=== PATIENT | female | born 1970 | race American Indian/Alaskan Native ===

== ENCOUNTER 2016-11-11 12:11 | Inpatient (IN) | payer OTHER ==
[2016-11-11 12:12] VITALS: BMI 42.8
[2016-11-11] MEDS ORDERED: Albuterol-Ipratrop 3 mg / 0.5 (3 ml) UD ONE (13:34)
[2016-11-11] MEDS: Albuterol-Ipratrop 3 mg / 0.5 (3 ml) UD IH SCH ×2 (13:39→13:40)
--- NOTE | 2016-11-11 13:43 | C.PDOC ---
History Of Present Illness 46 y/o female pmhx asthma, fibroids, ovarian cysts presents to the ED with asthma exacerbation with cough and fever the past 3 days. Pt has not taken any medications. Pt denies fever, chest pain, vomiting, dizziness or any other complaints. Time Seen by Provider: 11/11/16 12:42 Chief Complaint (Nursing): Shortness Of Breath History Per: Patient History/Exam Limitations: no limitations Onset/Duration Of Symptoms: Days Current Symptoms Are (Timing): Still Present Current Respiratory Medications: None Associated Symptoms: denies: Fever, Chest Pain, Dizziness Recent travel outside of the [place]: No Past Medical History Reviewed: Historical Data, Nursing Documentation, Vital Signs Vital Signs: Last Vital Signs Temp 99.5 F 11/11/16 16:04 Pulse 101 H 11/11/16 16:04 Resp 20 11/11/16 16:04 BP 93/64 L 11/11/16 16:04 Pulse Ox 100 11/11/16 16:39 - Medical History PMH: Asthma - [facility] Procedures CLOSED ENDOSCOPIC BIOPSY OF LARGE INTESTINE (02/07/14) ESOPHAGOGASTRODUODENOSCOPY [EGD] W/CLOSED BIOPSY (02/07/14) Family History: States: Unknown Family Hx - Social History Hx Tobacco Use: No Hx Alcohol Use: Yes Hx Substance Use: No - Immunization History Hx Tetanus Toxoid Vaccination: No Hx Influenza Vaccination: No Hx Pneumococcal Vaccination: No Review Of Systems Except As Marked, All Systems Reviewed And Found Negative. Constitutional: Positive for: Fever Cardiovascular: Negative for: Chest Pain Respiratory: Positive for: Cough Gastrointestinal: Negative for: Vomiting Neurological: Negative for: Dizziness Physical Exam - Physical Exam Appears: Non-toxic, No Acute Distress Skin: Warm, Dry, No Rash Head: Atraumatic, Normacephalic Neck: Normal ROM, Supple Chest: Symmetrical Cardiovascular: Rhythm Regular, No Murmur Respiratory: No Rales, Rhonchi (both lung correa), Wheezing (both lung correa) Gastrointestinal/Abdominal: Soft ED Course And Treatment - Laboratory Results Result Diagrams: 11/11/16 15:35 11/11/16 15:35 Lab Interpretation: Abnormal O2 Sat by Pulse Oximetry: 100 (on room air) Pulse Ox Interpretation: Normal - Radiology CXR Interpretation: Yes: Infiltrates Progress Note: Plan: CXR, nebulizer treatments. Treated with zithromax, prednisone and IVF NSS. Treated with avelox 400 mg IV Reassessment Condition: Improved - Physician Consult Information Physician Contacted: Angie Hayward Outcome Of Conversation: admit Disposition Discussed With : Angie Hayward Doctor Will See Patient In The: Hospital - Disposition Disposition: HOSPITALIZED Disposition Time: 16:45 Condition: STABLE - POA Present On Arrival: None - Clinical Impression Clinical Impression: Dyspnea, Leukocytosis, Pneumonia - PA / INJECTION MOLDING MACHINE TENDER / Resident Statement MD/DO has reviewed & agrees with the documentation as recorded. - Scribe Statement The provider has reviewed the documentation as recorded by the Scribe Wiliam Monroy All medical record entries made by the Scribe were at my direction and personally dictated by me. I have reviewed the chart and agree that the record accurately reflects my personal performance of the history, physical exam, medical decision making, and the department course for this patient. I have also personally directed, reviewed, and agree with the discharge instructions and disposition. Decision To Admit - Pt Status Changed To: Hospital Disposition Of: Inpatient - Admit Certification Admit to Inpatient:: After my assessment, the patient will require hospitalization for at least two midnights. This is because of the severity of symptoms shown, intensity of services needed, and/or the medical risk in this patient being treated as an outpatient. - InPatient: Physician Admission Certification: I certify that this patient requires 2 or more midnights of care for the following reason:: Pneumonia - . Bed Request Type: Regular Admitting Physician: Angie Hayward Patient Diagnosis: Dyspnea, Leukocytosis, Pneumonia
--- NOTE | 2016-11-11 13:47 | RAD ---
HISTORY: SOB COMPARISON: Chest x-ray performed 02/08/14 TECHNIQUE: Chest PA and lateral FINDINGS: Examination limited by habitus. LUNGS: Retrocardiac atelectasis or pneumonia. Please note that chest x-ray has limited sensitivity for the detection of pulmonary masses. PLEURA: No significant pleural effusion identified. No definite pneumothorax . CARDIOVASCULAR: The cardiomediastinal silhouette appears within normal limits of size. OSSEOUS STRUCTURES: No acute osseous abnormality identified. VISUALIZED UPPER ABDOMEN: Unremarkable. OTHER FINDINGS: None. IMPRESSION: Retrocardiac atelectasis or pneumonia.
[2016-11-11] MEDS ORDERED: Sodium Chloride 0.9% 1,000 ML IV ONE (14:46)
[2016-11-11] MEDS ORDERED: Sodium Chloride 0.9% 1,000 ML ONE (15:15)
[2016-11-11 15:45] LABS: BASO % 0.2 % (0.0-2.0); EOS % 0.1 % (0.0-4.0); HEMATOCRIT 35.6 % (34.0-47.0); LYMPH # 1.9 K/uL (1.0-4.3); LYMPH % 7.2 % (20.0-40.0); MEAN CELL VOLUME 81.9 fL (81.0-99.0); MEAN CORPUSCULAR HEMOGLOBIN 25.6 pg (27.0-31.0); MEAN CORPUSCULAR HGB CONC 31.3 g/dL (33.0-37.0); MONO # 1.9 K/uL (0.0-0.8); MONO % 7.4 % (0.0-10.0); PLATELET COUNT 310 K/uL (130-400); RED CELL DISTRIBUTION WIDTH 15.8 % (11.5-14.5); WHITE BLOOD COUNT 26.3 K/uL (4.8-10.8)
[2016-11-11 15:48] LABS: CHLORIDE 96 mmol/L (98-107); SODIUM 135 mmol/L (132-148)
[2016-11-11 15:49] LABS: POTASSIUM 3.9 mmol/L (3.6-5.2)
[2016-11-11 15:51] LABS: AST/SGOT 14 U/L (14-36); BILIRUBIN,TOTAL 0.6 mg/dL (0.2-1.3); CARBON DIOXIDE 26 mmol/L (22-30); GFR AFRICAN-AMERICAN > 60; TOTAL PROTEIN 7.6 g/dL (6.3-8.3)
[2016-11-11 15:52] LABS: ALKALINE PHOSPHATASE 64 U/L (38-126); ALT/SGPT 15 U/L (9-52); BLOOD UREA NITROGEN 7 mg/dL (7-17); CALCIUM 8.1 mg/dl (8.6-10.4); GLUCOSE,RANDOM 149 mg/dL (65-105)
[2016-11-11] MEDS ORDERED: Moxifloxacin IV 400mg/250ml NS 250 ML IV ONE (16:29)
[2016-11-11] MEDS ORDERED: Moxifloxacin IV 400mg/250ml NS 250 ML IVPB ONE (16:38)
[2016-11-11 17:28] LABS: NEUTROPHIL 78 % (50-75); TOTAL CELLS COUNTED 100
[2016-11-11 17:30] LABS: PLATELET CLUMPS PRESENT
[2016-11-11] MEDS ORDERED: Albuterol HFA 90 mcg/actuation (8 g) INH PRN (17:58)
[2016-11-11 18:56] VITALS: RESP 20
[2016-11-11] MEDS: Fluticasone-Salmeterol 250-50mcg Diskus INH SCH (20:04)
--- NOTE | 2016-11-11 20:15 | CP.PCM.HP ---
<Esperanza Randall - Last Filed: 11/11/16 20:09> History of Present Illness - History of Present Illness History of Present Illness: Internal medicine H & P for Hospitalist service- Esperanzamaria elena Randall, PGY-1 Pt S & E at bedside. 46F w/PMH sig for Asthma (currently uncontrolled), PUD admitted for viral syndrome x 4 days. Pt reports for past month she hasn't felt well, has tried to use a friend's antibiotic (can't remember which one), without relief. Pt reports symptoms of cough - productive- yellow sputum, myaglias, fatigue, weakness, fevers, chills, anorexia x 3 days, diarrhea x 2 days, B/L LE soresness , shaking, congestion, headache, insomnia, sick contacts (son, granddaughter. Pt tried OTC medications, including NyQuil, Shayy seltzer w/o relief of symptoms in addition to the antibiotic she can't remember. Pt reports that she presented to hospital due to the lack of resolution of symptoms. Denies N/V, SOB, abdominal pain, chest pain, constipation, hemoptysis, hematuria, hematochezia, sore throat, rhinorrhea, changes in urination. PMH: PUD, Asthma- currently using albuterol 2-3 x Q3Hs PSH: Myomectomy, Right ovarian cystectomy All: PCN SH; ETOH use on weekens #2 drinks/weekend, denies tobacco or illicit drug use PMD: "[place] something on [facility]" Home meds: Albuterol Present on Admission - Present on Admission Any Indicators Present on Admission: No History of DVT/PE: No History of Uncontrolled Diabetes: No Urinary Catheter: No Decubitus Ulcer Present: No Review of Systems - Review of Systems All systems: reviewed and no additional remarkable complaints except - Constitutional Constitutional: Chills, Fever, Lethargy, Malaise, Weakness. absent: Headache - EENT Eyes: absent: Blurred Vision, Change in Vision, Diplopia Ears: absent: Dizziness Nose/Mouth/Throat: absent: Sore Throat - Cardiovascular Cardiovascular: Diaphoresis. absent: Chest Pain, Leg Edema, Palpitations - Respiratory Respiratory: Cough. absent: Hemoptysis - Gastrointestinal Gastrointestinal: Diarrhea. absent: Abdominal Pain, Constipation, Hematemesis, Hematochezia, Nausea, Vomiting - Genitourinary Genitourinary: absent: Change in Urinary Stream, Dysuria, Hematuria - Musculoskeletal Musculoskeletal: Myalgias. absent: Numbness, Tingling - Integumentary Integumentary: absent: Rash - Neurological Neurological: absent: Dizziness, Headaches, Tingling, Weakness - Psychiatric Psychiatric: Change in Appetite Past Patient History - Past Medical History & Family History Past Medical History?: Yes - Past Social History Smoking Status: Never Smoked - CARDIAC Hx Cardiac Disorders: No - PULMONARY Hx Asthma: Yes - NEUROLOGICAL Hx Neurological Disorder: No - HEENT Hx HEENT Problems: No - RENAL Hx Chronic Kidney Disease: No - HEMATOLOGICAL/ONCOLOGICAL Hx Blood Disorders: No - INTEGUMENTARY Hx Dermatological Problems: No - MUSCULOSKELETAL/RHEUMATOLOGICAL Hx Musculoskeletal Disorders: No Hx Falls: No - GASTROINTESTINAL Hx Gastrointestinal Disorders: No - GENITOURINARY/GYNECOLOGICAL Hx Genitourinary Disorders: No - PSYCHIATRIC Hx Substance Use: No - SURGICAL HISTORY Hx Tubal Ligation: Yes Other/Comment: Removal of cyst in ovary, fibroids - ANESTHESIA Hx Anesthesia: Yes Hx Anesthesia Reactions: No Hx Malignant Hyperthermia: No Meds Allergies/Adverse Reactions: Allergies Allergy/AdvReac Type Severity Reaction Status Date / Time Penicillins Allergy Verified 11/11/16 12:33 Physical Exam - Constitutional Appears: Non-toxic, No Acute Distress - Head Exam Head Exam: ATRAUMATIC, NORMAL INSPECTION, NORMOCEPHALIC - Eye Exam Eye Exam: EOMI, Normal appearance, PERRL Pupil Exam: NORMAL ACCOMODATION, PERRL - ENT Exam ENT Exam: Mucous Membranes Dry, Normal Exam - Respiratory Exam Respiratory Exam: Wheezes (mild B/L ), NORMAL BREATHING PATTERN. absent: Accessory Muscle Use, Chest Wall Tenderness, Decreased Breath Sounds, Clear to Auscultation Bilateral, Rales, Rhonchi, Respiratory Distress, Stridor - Cardiovascular Exam Cardiovascular Exam: REGULAR RHYTHM, +S1 - GI/Abdominal Exam GI & Abdominal Exam: Soft. absent: Distended, Firm, Guarding, Hernia, Tenderness - Extremities Exam Extremities exam: Positive for: normal inspection. Negative for: pedal edema - Back Exam Back exam: FULL ROM, NORMAL INSPECTION. absent: paraspinal tenderness, tenderness - Neurological Exam Neurological exam: Alert, CN II-XII Intact, Oriented x3 - Psychiatric Exam Psychiatric exam: Normal Affect, Normal Mood - Skin Skin Exam: Dry, Intact, Normal Color, Warm Results - Vital Signs Recent Vital Signs: Last Vital Signs Temp 98.4 F 11/11/16 18:56 Pulse 80 11/11/16 18:56 Resp 20 11/11/16 18:56 BP 111/69 11/11/16 18:56 Pulse Ox 95 11/11/16 18:56 - Labs Result Diagrams: 11/11/16 15:35 11/11/16 15:35 Assessment & Plan - Assessment and Plan (Free Text) Assessment: Sepsis due to pneumonia Leukocytosis 26.3 Afebrile Tachycardia of 101 Hypotensive 93/64 Flu neg CXR 2 views in AM FU EKG FU legionella FU mycoplasma FU strep pneumo Floraster BID Avelox 400mg Q24H Mucinex 600mg BID Promethazine/codeine cough syrup PRN Tylenol FU Blood cxr FU urine cxr Asthma Advair 250/50 diskus 1 puff Q12H Albuterol GI/DVT ppx SCDs Protonix heparin Dispo Admit to med-surg vS Q4H Regular diet Activity as bhaskar HALL attending - Date & Time Date: 11/11/16 Time: 04:45 Decision To Admit - Pt Status Changed To: Hospital Disposition Of: Observation - . Bed Request Type: Regular Admitting Physician: Anige Hayward <Angie Hayward V - Last Filed: 11/12/16 18:48> Results - Vital Signs Recent Vital Signs: Last Vital Signs Temp 97.8 F 11/12/16 15:35 Pulse 71 11/12/16 15:35 Resp 20 11/12/16 15:35 BP 116/71 11/12/16 15:35 Pulse Ox 98 11/12/16 15:35 - Labs Result Diagrams: 11/12/16 07:15 11/12/16 07:15 Labs: Laboratory Results - last 24 hr 11/11/16 11/12/16 17:57 07:15 WBC 22.6 H RBC 4.03 Hgb 10.4 L Hct 33.1 L MCV 82.0 MCH 25.7 L MCHC 31.3 L RDW 15.9 H Plt Count 283 MPV 9.2 Neut % (Auto) 81.8 H Lymph % (Auto) 10.8 L Monroe % (Auto) 7.1 Eos % (Auto) 0.0 Baso % (Auto) 0.3 Neut # 18.5 H Lymph # 2.4 Monroe # 1.6 H Eos # 0.0 Baso # 0.1 APTT 29 Sodium 139 Potassium 4.3 Chloride 101 Carbon Dioxide 24 Anion Gap 18 BUN 10 Creatinine 0.6 L Est GFR ( Amer) > 60 Est GFR (Non-Af Amer) > 60 Random Glucose 169 H Calcium 7.8 L Phosphorus 2.8 Magnesium 2.2 Total Bilirubin 0.4 AST 11 L D ALT 9 D Alkaline Phosphatase 59 Total Protein 6.9 Albumin 3.4 L Globulin 3.5 Albumin/Globulin Ratio 1.0 Ur L.pneumophila Ag Negative Attending/Attestation - Attestation I have personally seen and examined this patient.: Yes I have fully participated in the care of the patient.: Yes I have reviewed all pertinent clinical information: Yes Notes (Text): This is late computer entry for 11/11/16. Patient seen in Hallway Bed 4 on 11/11/16 at approximately 5PM. Case discussed with the resident. Patient reporting for the past 4 days associated body aches and pains, unremitting cough, nonbloody, productive and associated pleuritic chest pain. Patient reports she took 2 pills of her sister's antibiotic but unable to recall the name. Patient also reports for the past 2-3 months she has been using her albuterol about 4x a day for her asthma, but has not been controlled and has been without her any asthma medications. Patient denies history of being intubated due to asthma, and denies history of overnight stays due of her asthma in the past. Reviewed chest xray; patient likely has pneumonia. Patient given dose of Avelox in the ED and Duoneb treatment. Ordered for baseline EKG: NSR Discussed admitting orders with day-time resident. Assessment/Plan 1) Sepsis * high suspicion * Criteria: Leukocytosis 26.3, Tachycardia of 101, and source of infection likely pneumonia * Chest xray (11/11/16): retrocardiac atelectasis or pneumonia * Avelox 400mg Iv q daily (active since 11/11/16) * Florastor 250mg PO bid * Ordered for Legionella urine, mycoplasma IgM, strep pneumo urine * Mucinex 600mg BID * Promethazine/codeine 5ml PO Q4H cough syrup PRN * Tylenol 650mg PO Q 6hour PRN T>100.3F * FU Blood cxr and urine cxr 2) Pneumonia * Avelox 400mg IV q daily * Florastor 250mg PO bid * Ordered for Legionella urine, mycoplasma IgM, strep pneumo urine * Chest xray (11/11/16): retrocardiac atelectasis or pneumonia * Ordered for PA and Lateral chest xray * Mucinex 600mg BID * Promethazine/codeine 5ml PO Q4H cough syrup PRN 3) Asthma (uncontrolled) * Patient is not in acute exacerbation * mild-moderate type * Start Advair 250/50 diskus 1 puff Q12H * Albuterol HFA Q6HR PRN shortness of breathe 4) Prophylaxis * Protonix 40mg IV daily for GI ppx * Heparin 5000 units subq 8hours * Florastor 250mg PO bid
[2016-11-11] MEDS: Moxifloxacin IV 400mg/250ml NS 250 ML IVPB SCH (21:35)
[2016-11-11] MEDS: Saccharomyces Boulardi 250 mg Cap PO SCH (21:38)
[2016-11-11] MEDS: guaiFENesin 600 mg ER Tab PO SCH (21:39)
[2016-11-12] MEDS: Promethazine/Cod 6.25mg-10mg/5ml Syr UD PO PRN ×3 (00:16→23:47)
[2016-11-12 07:35] LABS: BASO # 0.1 K/uL (0.0-0.2); BASO % 0.3 % (0.0-2.0); HEMATOCRIT 33.1 % (34.0-47.0); LYMPH # 2.4 K/uL (1.0-4.3); LYMPH % 10.8 % (20.0-40.0); MEAN CORPUSCULAR HEMOGLOBIN 25.7 pg (27.0-31.0); MEAN CORPUSCULAR HGB CONC 31.3 g/dL (33.0-37.0); MEAN PLATELET VOLUME 9.2 fL (7.2-11.7); MONO # 1.6 K/uL (0.0-0.8); MONO % 7.1 % (0.0-10.0); RED CELL DISTRIBUTION WIDTH 15.9 % (11.5-14.5); WHITE BLOOD COUNT 22.6 K/uL (4.8-10.8)
[2016-11-12 07:50] LABS: CHLORIDE 101 mmol/L (98-107); SODIUM 139 mmol/L (132-148)
[2016-11-12 07:51] LABS: POTASSIUM 4.3 mmol/L (3.6-5.2)
[2016-11-12 07:53] LABS: ALKALINE PHOSPHATASE 59 U/L (38-126); ALT/SGPT 9 U/L (9-52); AST/SGOT 11 U/L (14-36); BILIRUBIN,TOTAL 0.4 mg/dL (0.2-1.3); BLOOD UREA NITROGEN 10 mg/dL (7-17); CARBON DIOXIDE 24 mmol/L (22-30); GFR AFRICAN-AMERICAN > 60; GLUCOSE,RANDOM 169 mg/dL (65-105); TOTAL PROTEIN 6.9 g/dL (6.3-8.3)
[2016-11-12 07:56] LABS: CALCIUM 7.8 mg/dl (8.6-10.4); MAGNESIUM 2.2 mg/dL (1.6-2.3); PHOSPHOROUS 2.8 mg/dL (2.5-4.5)
[2016-11-12] MEDS: Saccharomyces Boulardi 250 mg Cap PO SCH ×2 (09:44→17:33)
[2016-11-12] MEDS: guaiFENesin 600 mg ER Tab PO SCH ×2 (09:45→17:33)
--- NOTE | 2016-11-12 10:15 | RAD ---
HISTORY: Pneumonia COMPARISON: 11/11/2016 TECHNIQUE: Chest PA and lateral FINDINGS: LUNGS: There is ill-defined airspace disease in the left mid lung. The right lung is clear. PLEURA: No significant pleural effusion identified. No pneumothorax apparent. CARDIOVASCULAR: Normal. OSSEOUS STRUCTURES: No significant abnormalities. VISUALIZED UPPER ABDOMEN: Normal. OTHER FINDINGS: There is chronic elevation of the right hemidiaphragm. IMPRESSION: Question of developing left mid lung pneumonia. Follow-up PA and lateral radiographs are recommended to ensure complete resolution.
[2016-11-12] MEDS ORDERED: Albuterol-Ipratrop 3 mg / 0.5 (3 ml) UD INH STA (11:01)
[2016-11-12] MEDS: Fluticasone-Salmeterol 250-50mcg Diskus INH SCH ×2 (11:15→19:42)
--- NOTE | 2016-11-12 12:55 | CP.PCM.PN ---
<Esperanza Randall - Last Filed: 11/12/16 13:00> Subjective - Date & Time of Evaluation Date of Evaluation: 11/12/16 Time of Evaluation: 07:50 - Subjective Subjective: Internal medicine progress note for Hospitalist service- Esperanza Randall, PGY-1 Pt S & E at bedside. Pt reports some improvement, but continues with cough. Overall feels better, myaglias are improved. Denies N/V/F/C, SOB, CP, abdominal pain. Slept ok, eating ok, urinating ok. Objective - Vital Signs/Intake and Output Vital Signs (last 24 hours): Temp Pulse Resp BP Pulse Ox 98.4 F 79 20 138/89 98 11/12/16 07:00 11/12/16 08:22 11/12/16 07:00 11/12/16 07:00 11/12/16 07:00 Intake and Output: 11/12/16 11/12/16 06:59 18:59 Intake Total 540 Balance 540 - Medications Medications: Current Medications Acetaminophen (Tylenol 325mg Tab) 650 mg PO Q6 PRN PRN Reason: Fever >100.4 F Last Admin: 11/12/16 00:16 Dose: 650 mg Albuterol (Ventolin Hfa 90 Mcg/Actuation (8 G)) 1 puff INH RQ4 PRN PRN Reason: Wheezing Guaifenesin (Mucinex La) 600 mg PO BID [facility] Last Admin: 11/12/16 09:45 Dose: 600 mg Heparin Sodium (Porcine) (Heparin) 5,000 units SC Q8 [facility] Last Admin: 11/12/16 05:16 Dose: 5,000 units Moxifloxacin HCl (Avelox Iv 400mg/250ml Ns) 250 mls @ 167 mls/hr IVPB Q24H [facility] Last Admin: 11/11/16 21:35 Dose: 167 mls/hr Pantoprazole Sodium (Protonix Inj) 40 mg IVP DAILY [facility] Last Admin: 11/12/16 09:45 Dose: 40 mg Pneumococcal Polyvalent Vaccine (Pneumovax 23 Vaccine) 0.5 ml IM .ONCE ONE Stop: 11/14/16 10:01 Promethazine HCl/Codeine (Phenergan/Codeine Oral Syrup) 5 ml PO Q4 PRN PRN Reason: Cough Last Admin: 11/12/16 05:16 Dose: 5 ml Saccharomyces Boulardii (Florastor) 250 mg PO BID [facility] Last Admin: 11/12/16 09:44 Dose: 250 mg Fluticasone/Salmeterol (Advair Diskus 250/50) 1 puff INH RQ12 [facility] Last Admin: 11/12/16 11:15 Dose: 1 puff - Labs Labs: 11/12/16 07:15 11/12/16 07:15 APTT 29 SECONDS (21-34) 11/12/16 07:15 - Constitutional Appears: Non-toxic, No Acute Distress - Head Exam Head Exam: ATRAUMATIC, NORMAL INSPECTION, NORMOCEPHALIC - Eye Exam Eye Exam: EOMI, Normal appearance, PERRL Pupil Exam: NORMAL ACCOMODATION, PERRL - ENT Exam ENT Exam: Mucous Membranes Moist, Normal Exam - Respiratory Exam Respiratory Exam: Wheezes (B/L), NORMAL BREATHING PATTERN. absent: Accessory Muscle Use, Chest Wall Tenderness, Clear to Ausculation Bilateral, Rales, Rhonchi, Respiratory Distress - Cardiovascular Exam Cardiovascular Exam: REGULAR RHYTHM, +S1, +S2 - GI/Abdominal Exam GI & Abdominal Exam: Soft, Normal Bowel Sounds. absent: Tenderness - Extremities Exam Extremities Exam: Full ROM, Normal Inspection. absent: Pedal Edema - Back Exam Back Exam: Full ROM, NORMAL INSPECTION - Neurological Exam Neurological Exam: Alert, Awake, CN II-XII Intact, Oriented x3 - Psychiatric Exam Psychiatric exam: Normal Affect, Normal Mood - Skin Skin Exam: Dry, Intact, Normal Color, Warm Assessment and Plan - Assessment and Plan (Free Text) Assessment: Sepsis due to pneumonia Leukocytosis 22.6 from 26.3 Afebrile over last 24H Tachycardia resolved, HR WNL Hypotension resolved- BP WNL Flu neg CXR 2 views- Question of developing left mid lung pneumonia. Follow-up PA and lateral radiographs are recommended to ensure complete resolution. EKG NSR Legionella neg FU mycoplasma FU strep pneumo Flu neg Cont Floraster BID Cont Avelox 400mg Q24H Cont Mucinex 600mg BID Cont Promethazine/codeine cough syrup PRN Cont Tylenol PRN FU Blood cxr- pending FU urine cxr- pending Asthma Cont Advair 250/50 diskus 1 puff Q12H Cont Albuterol PRN Stat Duonebs x 1 Diarrhea FU C diff FU Ova/parasites On Floraster Monitor GI/DVT ppx SCDs Protonix heparin Dispo Cont med mgmt vS Q4H Regular diet Activity as bhaskar FU stool studies FU pneumonia work up Monitor WBC Plan for CXR after antibiotic course is completed DW attending <Angie Hayward V - Last Filed: 11/12/16 19:08> Objective - Vital Signs/Intake and Output Vital Signs (last 24 hours): Temp Pulse Resp BP Pulse Ox 97.8 F 71 20 116/71 98 11/12/16 15:35 11/12/16 15:35 11/12/16 15:35 11/12/16 15:35 11/12/16 15:35 Intake and Output: 11/12/16 11/12/16 06:59 18:59 Intake Total 540 Balance 540 - Medications Medications: Current Medications Acetaminophen (Tylenol 325mg Tab) 650 mg PO Q6 PRN PRN Reason: Fever >100.4 F Last Admin: 11/12/16 00:16 Dose: 650 mg Albuterol (Ventolin Hfa 90 Mcg/Actuation (8 G)) 1 puff INH RQ4 PRN PRN Reason: Wheezing Guaifenesin (Mucinex La) 600 mg PO BID [facility] Last Admin: 11/12/16 17:33 Dose: 600 mg Heparin Sodium (Porcine) (Heparin) 5,000 units SC Q8 [facility] Last Admin: 11/12/16 14:28 Dose: 5,000 units Moxifloxacin HCl (Avelox Iv 400mg/250ml Ns) 250 mls @ 167 mls/hr IVPB Q24H [facility] Last Admin: 11/12/16 17:34 Dose: 167 mls/hr Pantoprazole Sodium (Protonix Inj) 40 mg IVP DAILY [facility] Last Admin: 11/12/16 09:45 Dose: 40 mg Pneumococcal Polyvalent Vaccine (Pneumovax 23 Vaccine) 0.5 ml IM .ONCE ONE Stop: 11/14/16 10:01 Promethazine HCl/Codeine (Phenergan/Codeine Oral Syrup) 5 ml PO Q4 PRN PRN Reason: Cough Last Admin: 11/12/16 05:16 Dose: 5 ml Saccharomyces Boulardii (Florastor) 250 mg PO BID [facility] Last Admin: 11/12/16 17:33 Dose: 250 mg Fluticasone/Salmeterol (Advair Diskus 250/50) 1 puff INH RQ12 [facility] Last Admin: 11/12/16 11:15 Dose: 1 puff - Labs Labs: 11/12/16 07:15 11/12/16 07:15 APTT 29 SECONDS (21-34) 11/12/16 07:15 Attending/Attestation - Attestation I have personally seen and examined this patient.: Yes I have fully participated in the care of the patient.: Yes I have reviewed all pertinent clinical information, including history, physical exam and plan: Yes Notes (Text): Patient seen, examined, and case discussed with day-time resident. Patient reports she is feeling better, but also reports she has been "having the runs" since yesterday evening. Patient clinically has wheezing this morning. Ordered for additional nebulizer treatment. patient ordered for stool studies given diarrhea and recent history of IV abx for a day and 2 day hx of PO antibiotic. Patient's white count has mildly improved. Will continue antibiotic therapy and monitor cultures to rule out other sources of infection. Assessment/Plan 1) Sepsis * high suspicion * Criteria: Leukocytosis 26.3, Tachycardia of 101, and source of infection likely pneumonia * Chest xray (11/11/16): retrocardiac atelectasis or pneumonia * Chest xray (11/12/16): question of developing left mid lung pneumonia. Follow- up PA and lateral radiographs are recommended for resolution * Avelox 400mg Iv q daily (active since 11/11/16) * Florastor 250mg PO bid * Legionella urine: negative, mycoplasma IgM, strep pneumo urine * Mucinex 600mg BID * Promethazine/codeine 5ml PO Q4H cough syrup PRN * Tylenol 650mg PO Q 6hour PRN T>100.3F * Pending blood culture * Urine culture: pending 2) Pneumonia * Avelox 400mg IV q daily * Florastor 250mg PO bid * Ordered for Legionella urine, mycoplasma IgM, strep pneumo urine * Chest xray (11/11/16): retrocardiac atelectasis or pneumonia * Ordered for PA and Lateral chest xray * Mucinex 600mg BID * Promethazine/codeine 5ml PO Q4H cough syrup PRN 3) Asthma (uncontrolled) * Patient is not in acute exacerbation * mild-moderate type * Start Advair 250/50 diskus 1 puff Q12H * Albuterol HFA Q6HR PRN shortness of breathe 4) Diarrhea * Stool ova and parasite, C. dif toxin * if negative, will start Immodium to quell diarrhea 5) Prophylaxis * Protonix 40mg IV daily for GI ppx * Heparin 5000 units subq 8hours * Florastor 250mg PO bid
--- NOTE | 2016-11-12 14:44 | CARD ---
APPROVED REPORT EKG Measurement Heart [id number] <Conclusion> Normal sinus rhythm Normal ECG
[2016-11-12] MEDS: Moxifloxacin IV 400mg/250ml NS 250 ML IVPB SCH (17:34)
[2016-11-13] MEDS: Promethazine/Cod 6.25mg-10mg/5ml Syr UD PO PRN ×2 (05:53→12:41)
[2016-11-13] MEDS: Fluticasone-Salmeterol 250-50mcg Diskus INH SCH ×2 (07:29→20:12)
[2016-11-13 08:09] LABS: BASO # 0.1 K/uL (0.0-0.2); BASO % 0.7 % (0.0-2.0); EOS # 0.1 K/uL (0.0-0.7); EOS % 0.6 % (0.0-4.0); HEMATOCRIT 31.1 % (34.0-47.0); LYMPH # 5.5 K/uL (1.0-4.3); LYMPH % 29.6 % (20.0-40.0); MEAN CELL VOLUME 82.3 fL (81.0-99.0); MEAN CORPUSCULAR HEMOGLOBIN 25.6 pg (27.0-31.0); MEAN CORPUSCULAR HGB CONC 31.1 g/dL (33.0-37.0); MEAN PLATELET VOLUME 9.5 fL (7.2-11.7); MONO # 0.9 K/uL (0.0-0.8); MONO % 4.8 % (0.0-10.0); RED CELL DISTRIBUTION WIDTH 16.1 % (11.5-14.5); WHITE BLOOD COUNT 18.6 K/uL (4.8-10.8)
[2016-11-13 08:34] LABS: CHLORIDE 108 mmol/L (98-107); SODIUM 142 mmol/L (132-148)
[2016-11-13 08:35] LABS: POTASSIUM 3.8 mmol/L (3.6-5.2)
[2016-11-13 08:36] LABS: GFR AFRICAN-AMERICAN > 60
[2016-11-13 08:37] LABS: ALB/GLOB RATIO 0.9 (1.0-2.1); ALKALINE PHOSPHATASE 54 U/L (38-126); ALT/SGPT 10 U/L (9-52); AST/SGOT 11 U/L (14-36); BILIRUBIN,TOTAL < 0.1 mg/dL (0.2-1.3); BLOOD UREA NITROGEN 11 mg/dL (7-17); CALCIUM 7.6 mg/dl (8.6-10.4); CARBON DIOXIDE 22 mmol/L (22-30); GLUCOSE,RANDOM 118 mg/dL (65-105); PHOSPHOROUS 2.8 mg/dL (2.5-4.5); TOTAL PROTEIN 6.3 g/dL (6.3-8.3)
[2016-11-13] MEDS: Saccharomyces Boulardi 250 mg Cap PO SCH ×2 (11:00→17:50)
[2016-11-13] MEDS: guaiFENesin 600 mg ER Tab PO SCH ×2 (11:00→17:50)
[2016-11-13] MEDS: Albuterol-Ipratrop 3 mg / 0.5 (3 ml) UD INH SCH ×3 (11:14→20:12)
--- NOTE | 2016-11-13 15:20 | CP.PCM.PN ---
<Esperanza Randall - Last Filed: 11/13/16 15:18> Subjective - Date & Time of Evaluation Date of Evaluation: 11/13/16 Time of Evaluation: 07:35 - Subjective Subjective: Internal medicine progress note for Hospitalist service- Esperanza Randall, PGY-1 Pt S & E at bedside. Pt reports continued cough, wheezing overnight, appetite still poor. Pt overall feeling slightly better, however still fatigued. Denies N/v/F/C, CP, abdominal pain. Objective - Vital Signs/Intake and Output Vital Signs (last 24 hours): Temp Pulse Resp BP Pulse Ox 97.6 F 62 20 114/75 100 11/13/16 07:44 11/13/16 07:44 11/13/16 07:44 11/13/16 07:44 11/13/16 07:44 Intake and Output: 11/13/16 11/13/16 06:59 18:59 Intake Total 350 240 Balance 350 240 - Medications Medications: Current Medications Acetaminophen (Tylenol 325mg Tab) 650 mg PO Q6 PRN PRN Reason: Fever >100.4 F Last Admin: 11/12/16 23:47 Dose: 650 mg Albuterol/Ipratropium (Duoneb 3 Mg/0.5 Mg (3 Ml) Ud) 3 ml INH RQ4 [facility] Guaifenesin (Mucinex La) 600 mg PO BID [facility] Last Admin: 11/13/16 11:00 Dose: 600 mg Heparin Sodium (Porcine) (Heparin) 5,000 units SC Q8 [facility] Last Admin: 11/13/16 15:02 Dose: Not Given Moxifloxacin HCl (Avelox Iv 400mg/250ml Ns) 250 mls @ 167 mls/hr IVPB Q24H [facility] Last Admin: 11/12/16 17:34 Dose: 167 mls/hr Pantoprazole Sodium (Protonix Inj) 40 mg IVP DAILY [facility] Last Admin: 11/13/16 12:41 Dose: 40 mg Pneumococcal Polyvalent Vaccine (Pneumovax 23 Vaccine) 0.5 ml IM .ONCE ONE Stop: 11/14/16 10:01 Promethazine HCl/Codeine (Phenergan/Codeine Oral Syrup) 5 ml PO Q4 PRN PRN Reason: Cough Last Admin: 11/13/16 12:41 Dose: 5 ml Saccharomyces Boulardii (Florastor) 250 mg PO BID [facility] Last Admin: 11/13/16 11:00 Dose: 250 mg Fluticasone/Salmeterol (Advair Diskus 250/50) 1 puff INH RQ12 [facility] Last Admin: 11/13/16 07:29 Dose: 1 puff - Labs Labs: 11/13/16 08:03 11/13/16 08:03 APTT 29 SECONDS (21-34) 11/12/16 07:15 - Constitutional Appears: Non-toxic, No Acute Distress - Head Exam Head Exam: ATRAUMATIC, NORMAL INSPECTION, NORMOCEPHALIC - Eye Exam Eye Exam: EOMI, Normal appearance, PERRL Pupil Exam: NORMAL ACCOMODATION, PERRL - ENT Exam ENT Exam: Mucous Membranes Moist, Normal Exam - Neck Exam Neck Exam: Full ROM, Normal Inspection - Respiratory Exam Respiratory Exam: Wheezes, NORMAL BREATHING PATTERN. absent: Accessory Muscle Use, Chest Wall Tenderness, Decreased Breath Sounds, Clear to Ausculation Bilateral, Rales, Rhonchi, Respiratory Distress - Cardiovascular Exam Cardiovascular Exam: REGULAR RHYTHM, +S1, +S2 - GI/Abdominal Exam GI & Abdominal Exam: Soft, Normal Bowel Sounds. absent: Distended, Firm, Guarding, Rigid, Tenderness - Extremities Exam Extremities Exam: Full ROM, Normal Inspection. absent: Pedal Edema - Back Exam Back Exam: Full ROM, NORMAL INSPECTION - Neurological Exam Neurological Exam: Alert, Awake, Oriented x3 - Psychiatric Exam Psychiatric exam: Normal Affect, Normal Mood - Skin Skin Exam: Dry, Intact, Normal Color, Warm Assessment and Plan - Assessment and Plan (Free Text) Assessment: Sepsis due to pneumonia Leukocytosis 18.6 from 22.6 Afebrile over last 24H Flu neg CXR 2 views- Question of developing left mid lung pneumonia. Follow-up PA and lateral radiographs are recommended to ensure complete resolution. EKG NSR Legionella neg FU mycoplasma FU strep pneumo Flu neg Cont Floraster BID Cont Avelox 400mg Q24H Cont Mucinex 600mg BID Cont Promethazine/codeine cough syrup PRN Cont Tylenol PRN Blood cxr neg x 24H Urine cxr neg Asthma Cont Advair 250/50 diskus 1 puff Q12H Albuterol d/c'd Duonebs Q4H [facility] Stat Duonebs x 1 Diarrhea FU C diff FU Ova/parasites On Floraster FU FOB Monitor GI/DVT ppx SCDs Protonix heparin Dispo Cont med mgmt vS Q4H Regular diet Activity as bhaskar FU stool studies FU pneumonia work up Monitor WBC Plan for CXR after antibiotic course is completed DW attending <Angie Hayward V - Last Filed: 11/13/16 17:20> Objective - Vital Signs/Intake and Output Vital Signs (last 24 hours): Temp Pulse Resp BP Pulse Ox 98.3 F 69 20 110/71 99 11/13/16 16:39 11/13/16 16:39 11/13/16 16:39 11/13/16 16:39 11/13/16 16:39 Intake and Output: 11/13/16 11/13/16 06:59 18:59 Intake Total 350 240 Balance 350 240 - Medications Medications: Current Medications Acetaminophen (Tylenol 325mg Tab) 650 mg PO Q6 PRN PRN Reason: Fever >100.4 F Last Admin: 11/12/16 23:47 Dose: 650 mg Albuterol/Ipratropium (Duoneb 3 Mg/0.5 Mg (3 Ml) Ud) 3 ml INH RQ4 [facility] Last Admin: 11/13/16 16:17 Dose: 3 ml Guaifenesin (Mucinex La) 600 mg PO BID [facility] Last Admin: 11/13/16 11:00 Dose: 600 mg Heparin Sodium (Porcine) (Heparin) 5,000 units SC Q8 [facility] Last Admin: 11/13/16 15:02 Dose: Not Given Moxifloxacin HCl (Avelox Iv 400mg/250ml Ns) 250 mls @ 167 mls/hr IVPB Q24H [facility] Last Admin: 11/12/16 17:34 Dose: 167 mls/hr Pantoprazole Sodium (Protonix Inj) 40 mg IVP DAILY [facility] Last Admin: 11/13/16 12:41 Dose: 40 mg Pneumococcal Polyvalent Vaccine (Pneumovax 23 Vaccine) 0.5 ml IM .ONCE ONE Stop: 11/14/16 10:01 Promethazine HCl/Codeine (Phenergan/Codeine Oral Syrup) 5 ml PO Q4 PRN PRN Reason: Cough Last Admin: 11/13/16 12:41 Dose: 5 ml Saccharomyces Boulardii (Florastor) 250 mg PO BID [facility] Last Admin: 11/13/16 11:00 Dose: 250 mg Fluticasone/Salmeterol (Advair Diskus 250/50) 1 puff INH RQ12 [facility] Last Admin: 11/13/16 07:29 Dose: 1 puff - Labs Labs: 11/13/16 08:03 11/13/16 08:03 APTT 29 SECONDS (21-34) 11/12/16 07:15 Attending/Attestation - Attestation I have personally seen and examined this patient.: Yes I have fully participated in the care of the patient.: Yes I have reviewed all pertinent clinical information, including history, physical exam and plan: Yes Notes (Text): Patient seen, examined, and case discussed with day-time resident. Patient reports she is feeling about the same. Patient reports breathing not improved much, patient is audible wheezing and rhonchi. Change frequency of nebulizer. Patient's white count is mildly improving. Will continue antibiotic therapy and monitor cultures to rule out other sources of infection. Assessment/Plan 1) Sepsis * high suspicion * Criteria: Leukocytosis 26.3, Tachycardia of 101, and source of infection likely pneumonia * Chest xray (11/11/16): retrocardiac atelectasis or pneumonia * Chest xray (11/12/16): question of developing left mid lung pneumonia. Follow- up PA and lateral radiographs are recommended for resolution * Avelox 400mg Iv q daily (active since 11/11/16) * Florastor 250mg PO bid * Legionella urine: negative, mycoplasma IgM, strep pneumo urine * Mucinex 600mg BID * Promethazine/codeine 5ml PO Q4H cough syrup PRN * Tylenol 650mg PO Q 6hour PRN T>100.3F * Blood culture (11/11/16): no growth for 24 hours X2 * Urine culture: contaminated; re-ordered for urine culture * Duonebs Q 4hours scheduled 2) Pneumonia * Avelox 400mg IV q daily * Florastor 250mg PO bid * Legionella urine: negative, mycoplasma IgM, strep pneumo urine * Chest xray (11/11/16): retrocardiac atelectasis or pneumonia * Chest xray (11/12/16): question of developing left mid lung pneumonia. Follow- up PA and lateral radiographs are recommended for resolution * Mucinex 600mg BID * Promethazine/codeine 5ml PO Q4H cough syrup PRN 3) Asthma (uncontrolled) * Patient is not in acute exacerbation * mild-moderate type * Start Advair 250/50 diskus 1 puff Q12H * Duoneb Q 4hour scheduled 4) Diarrhea * Stool ova and parasite, C. dif toxin pending * if negative, will start Immodium to quell diarrhea 5) Prophylaxis * Protonix 40mg IV daily for GI ppx * Heparin 5000 units subq 8hours * Florastor 250mg PO bid
[2016-11-13] MEDS: Moxifloxacin IV 400mg/250ml NS 250 ML IVPB SCH (17:51)
[2016-11-14] MEDS: Albuterol-Ipratrop 3 mg / 0.5 (3 ml) UD INH SCH ×4 (01:30→11:14)
[2016-11-14 07:06] LABS: BASO % 0.3 % (0.0-2.0); EOS # 0.2 K/uL (0.0-0.7); EOS % 1.6 % (0.0-4.0); HEMATOCRIT 32.6 % (34.0-47.0); LYMPH # 3.9 K/uL (1.0-4.3); MEAN CELL VOLUME 82.5 fL (81.0-99.0); MEAN CORPUSCULAR HEMOGLOBIN 25.8 pg (27.0-31.0); MEAN CORPUSCULAR HGB CONC 31.3 g/dL (33.0-37.0); MEAN PLATELET VOLUME 8.9 fL (7.2-11.7); MONO # 0.8 K/uL (0.0-0.8); MONO % 6.3 % (0.0-10.0); RED CELL DISTRIBUTION WIDTH 15.9 % (11.5-14.5)
[2016-11-14 07:45] LABS: CHLORIDE 105 mmol/L (98-107); SODIUM 141 mmol/L (132-148)
[2016-11-14 07:46] LABS: POTASSIUM 3.8 mmol/L (3.6-5.2)
[2016-11-14 07:47] LABS: GFR AFRICAN-AMERICAN > 60
[2016-11-14 07:48] LABS: ALB/GLOB RATIO 0.9 (1.0-2.1); ALKALINE PHOSPHATASE 61 U/L (38-126); ALT/SGPT 11 U/L (9-52); AST/SGOT 11 U/L (14-36); BILIRUBIN,TOTAL 0.2 mg/dL (0.2-1.3); BLOOD UREA NITROGEN 11 mg/dL (7-17); CARBON DIOXIDE 26 mmol/L (22-30); GLUCOSE,RANDOM 120 mg/dL (65-105); PHOSPHOROUS 3.4 mg/dL (2.5-4.5); TOTAL PROTEIN 6.7 g/dL (6.3-8.3)
[2016-11-14 07:49] LABS: CALCIUM 7.9 mg/dl (8.6-10.4)
[2016-11-14 08:05] VITALS: BP 137/92; PULSE 86; TEMP 97.5; O2SAT 100
[2016-11-14] MEDS ORDERED: Pneumococcal 23-Valent Vaccine IM ONE (10:00)
[2016-11-14] MEDS: Saccharomyces Boulardi 250 mg Cap PO SCH (10:14)
--- NOTE | 2016-11-14 10:18 | CP.PCM.DIS ---
<Esperanza Randall - Last Filed: 11/14/16 10:20> Provider - Provider Date of Admission: 11/11/16 16:37 Attending physician: Angie Hayward DO Primary care physician: None- referred to [facility] Consults: None Time Spent in preparation of Discharge (in minutes): 60 Hospital Course - Lab Results Lab Results: Micro Results 11/11/16 16:40 Blood Blood Culture - Preliminary NO GROWTH AFTER 48 HOURS 11/11/16 16:49 Urine Urine Culture - Final 10-50,000 CFU/ML. MULTIPLE SPECIES. PROBABLE CONTAMINATION. Most Recent Lab Values WBC 12.0 K/uL (4.8-10.8) H 11/14/16 06:52 RBC 3.95 Mil/uL (3.80-5.20) 11/14/16 06:52 Hgb 10.2 g/dL (11.0-16.0) L 11/14/16 06:52 Hct 32.6 % (34.0-47.0) L 11/14/16 06:52 MCV 82.5 fL (81.0-99.0) 11/14/16 06:52 MCH 25.8 pg (27.0-31.0) L 11/14/16 06:52 MCHC 31.3 g/dL (33.0-37.0) L 11/14/16 06:52 RDW 15.9 % (11.5-14.5) H 11/14/16 06:52 Plt Count 353 K/uL (130-400) 11/14/16 06:52 MPV 8.9 fL (7.2-11.7) 11/14/16 06:52 Neut % (Auto) 59.8 % (50.0-75.0) 11/14/16 06:52 Lymph % (Auto) 32.0 % (20.0-40.0) 11/14/16 06:52 Linn % (Auto) 6.3 % (0.0-10.0) 11/14/16 06:52 Eos % (Auto) 1.6 % (0.0-4.0) 11/14/16 06:52 Baso % (Auto) 0.3 % (0.0-2.0) 11/14/16 06:52 Neut # 7.2 K/uL (1.8-7.0) H 11/14/16 06:52 Lymph # 3.9 K/uL (1.0-4.3) 11/14/16 06:52 Linn # 0.8 K/uL (0.0-0.8) 11/14/16 06:52 Eos # 0.2 K/uL (0.0-0.7) 11/14/16 06:52 Baso # 0.0 K/uL (0.0-0.2) 11/14/16 06:52 Neutrophils % (Manual) 78 % (50-75) H 11/11/16 15:35 Band Neutrophils % 10 % (0-2) H 11/11/16 15:35 Lymphocytes % (Manual) 8 % (20-40) L 11/11/16 15:35 Monocytes % (Manual) 4 % (0-10) 11/11/16 15:35 Platelet Estimate Normal (NORMAL) 11/11/16 15:35 Plt Clumps, EDTA Present 11/11/16 15:35 Hypochromasia (manual) Slight 11/11/16 15:35 Microcytosis (manual) Slight 11/11/16 15:35 APTT 29 SECONDS (21-34) 11/12/16 07:15 Sodium 141 mmol/L (132-148) 11/14/16 06:52 Potassium 3.8 mmol/L (3.6-5.2) 11/14/16 06:52 Chloride 105 mmol/L (98-107) 11/14/16 06:52 Carbon Dioxide 26 mmol/L (22-30) 11/14/16 06:52 Anion Gap 14 (10-20) 11/14/16 06:52 BUN 11 mg/dL (7-17) 11/14/16 06:52 Creatinine 0.7 MG/DL (0.7-1.2) 11/14/16 06:52 Est GFR ( Amer) > 60 11/14/16 06:52 Est GFR (Non-Af Amer) > 60 11/14/16 06:52 Random Glucose 120 mg/dL (65-105) H 11/14/16 06:52 Calcium 7.9 mg/dl (8.6-10.4) L 11/14/16 06:52 Phosphorus 3.4 mg/dL (2.5-4.5) 11/14/16 06:52 Magnesium 2.0 mg/dL (1.6-2.3) 11/14/16 06:52 Total Bilirubin 0.2 mg/dL (0.2-1.3) 11/14/16 06:52 AST 11 U/L (14-36) L 11/14/16 06:52 ALT 11 U/L (9-52) 11/14/16 06:52 Alkaline Phosphatase 61 U/L (38-126) 11/14/16 06:52 Total Protein 6.7 g/dL (6.3-8.3) 11/14/16 06:52 Albumin 3.2 g/dL (3.5-5.0) L 11/14/16 06:52 Globulin 3.4 gm/dL (2.2-3.9) 11/14/16 06:52 Albumin/Globulin Ratio 0.9 (1.0-2.1) L 11/14/16 06:52 Influenza Typ A,B (EIA) Negative for flu a/b (NEGATIVE) 11/11/16 13:28 Ur L.pneumophila Ag Negative (NEGATIVE) 11/11/16 17:57 - Hospital Course Hospital Course: On hospital admission 46F w/PMH sig for Asthma (currently uncontrolled), PUD admitted for viral syndrome x 4 days. Pt reports for past month she hasn't felt well, has tried to use a friend's antibiotic (can't remember which one), without relief. Pt reports symptoms of cough - productive- yellow sputum, myaglias, fatigue, weakness, fevers, chills, anorexia x 3 days, diarrhea x 2 days, B/L LE soresness , shaking, congestion, headache, insomnia, sick contacts (son, granddaughter. Pt tried OTC medications, including NyQuil, Shayy seltzer w/o relief of symptoms in addition to the antibiotic she can't remember. Pt reports that she presented to hospital due to the lack of resolution of symptoms. Denies N/V, SOB, abdominal pain, chest pain, constipation, hemoptysis, hematuria, hematochezia, sore throat, rhinorrhea, changes in urination. On hospital course Pt admitted to hospital for sepsis due to pneumonia and uncontrolled astham. Pt started on antibiotic regimen for pneumonia with good resultion of leukocytosis. All testing negative, excluding mycoplasma, which was pending at time of discharge. Pt's asthma regimen was adjusted with good resultion of wheezing over course of hospitalization. Pt's symptoms grossly improved, pt stable and ready for discharge home with instruction to [facility] for continued medical management and to finish course of antibiotics- pt expressed understanding of plan. On hospital discharge Patient medically stable for discharge as per Dr. Hayward. Patient is to follow up with [facility] to establish medical care, within 1 week after discharge from hospital. Patient is being discharged on an antibiotic, please complete the full course. Please eat yogurt on the days you take the antibiotic , this will help your gut saira and decrease the chance of getting diarrhea from the antibiotic. Please fill your prescriptions for your asthma medications and take as written. You may take Motrin over the counter as directed on the bottle for your muscle spasm of your left shoulder. You may also use a heating pad to help with pain. Please return to hospital if you have a recurrence of symptoms. Diagnoses pneumonia, asthma Medications Moxifloxacin [Avelox] 400 mg PO DAILY #3 tab Fluticasone Propionate 15.8 ml NS Q12H #1 spray.susp guaiFENesin [mucINEX] 600 mg PO Q12H #14 tab Albuterol HFA [Ventolin HFA 90 mcg/actuation (8 g)] 1 puff IH Q4H PRN #1 inhaler PRN Reason: Wheezing Phenergen w/codeine #120mL- 5 mL Q4H PRN cough This is a summary of hospital course, please see EMR for further details. - Date & Time of H&P Date of H&P: 11/11/16 Time of H&P: 20:09 Discharge Exam - Head Exam Head Exam: ATRAUMATIC, NORMAL INSPECTION, NORMOCEPHALIC - Eye Exam Eye Exam: EOMI, Normal appearance, PERRL Pupil Exam: NORMAL ACCOMODATION, PERRL - ENT Exam ENT Exam: Mucous Membranes Moist, Normal Exam - Neck Exam Neck exam: Full Rom, Normal Inspection - Respiratory Exam Respiratory Exam: Clear to PA & Lateral, NORMAL BREATHING PATTERN, UNREMARKABLE. absent: Rhonchi, Wheezes, Respiratory Distress, Stridor - Cardiovascular Exam Cardiovascular Exam: REGULAR RHYTHM, +S1, +S2 - GI/Abdominal Exam GI & Abdominal Exam: Normal Bowel Sounds, Soft, Unremarkable. absent: Tenderness - Extremities Exam Extremities exam: full ROM, normal inspection - Back Exam Back exam: FULL ROM, muscle spasm (Left shoulder area), NORMAL INSPECTION - Neurological Exam Neurological exam: Alert, CN II-XII Intact, Oriented x3 - Psychiatric Exam Psychiatric exam: Normal Affect, Normal Mood - Skin Skin Exam: Dry, Intact, Normal Color, Warm Discharge Plan - Discharge Medications Prescriptions: Moxifloxacin [Avelox] 400 mg PO DAILY #3 tab RX: Fluticasone Propionate 15.8 ml NS Q12H #1 spray.susp guaiFENesin [mucINEX] 600 mg PO Q12H #14 tab RX: Albuterol HFA [Ventolin HFA 90 mcg/actuation (8 g)] 1 puff IH Q4H PRN #1 inhaler PRN Reason: Wheezing - Follow Up Plan Condition: STABLE Disposition: HOME/ ROUTINE Instructions: Albuterol (By breathing), Guaifenesin (By mouth), Fluticasone ( By breathing), Moxifloxacin (By mouth), Pneumonia (DC), Pneumonia (GEN) Additional Instructions: Patient medically stable for discharge as per Dr. Hayward. Patient is to follow up with the [facility] to establish medical care, within 1 week after discharge from hospital. Patient is being discharged on an antibiotic, please complete the full course. Please eat yogurt on the days you take the antibiotic , this will help your gut saira and decrease the chance of getting diarrhea from the antibiotic. Please fill your prescriptions for your asthma medications and take as written. You may take Motrin over the counter as directed on the bottle for your muscle spasm of your left shoulder. You may also use a heating pad to help with pain. Please return to hospital if you have a recurrence of symptoms. Referrals: Cielo Scanlon MD [Staff Provider] - <Angie Hayward V - Last Filed: 11/14/16 16:46> Provider - Provider Date of Admission: 11/11/16 16:37 Attending physician: Angie Hayward, DO Hospital Course - Lab Results Lab Results: Micro Results 11/11/16 16:40 Blood Blood Culture - Preliminary NO GROWTH AFTER 48 HOURS 11/11/16 16:49 Urine Urine Culture - Final 10-50,000 CFU/ML. MULTIPLE SPECIES. PROBABLE CONTAMINATION. Most Recent Lab Values WBC 12.0 K/uL (4.8-10.8) H 11/14/16 06:52 RBC 3.95 Mil/uL (3.80-5.20) 11/14/16 06:52 Hgb 10.2 g/dL (11.0-16.0) L 11/14/16 06:52 Hct 32.6 % (34.0-47.0) L 11/14/16 06:52 MCV 82.5 fL (81.0-99.0) 11/14/16 06:52 MCH 25.8 pg (27.0-31.0) L 11/14/16 06:52 MCHC 31.3 g/dL (33.0-37.0) L 11/14/16 06:52 RDW 15.9 % (11.5-14.5) H 11/14/16 06:52 Plt Count 353 K/uL (130-400) 11/14/16 06:52 MPV 8.9 fL (7.2-11.7) 11/14/16 06:52 Neut % (Auto) 59.8 % (50.0-75.0) 11/14/16 06:52 Lymph % (Auto) 32.0 % (20.0-40.0) 11/14/16 06:52 Linn % (Auto) 6.3 % (0.0-10.0) 11/14/16 06:52 Eos % (Auto) 1.6 % (0.0-4.0) 11/14/16 06:52 Baso % (Auto) 0.3 % (0.0-2.0) 11/14/16 06:52 Neut # 7.2 K/uL (1.8-7.0) H 11/14/16 06:52 Lymph # 3.9 K/uL (1.0-4.3) 11/14/16 06:52 Linn # 0.8 K/uL (0.0-0.8) 11/14/16 06:52 Eos # 0.2 K/uL (0.0-0.7) 11/14/16 06:52 Baso # 0.0 K/uL (0.0-0.2) 11/14/16 06:52 Neutrophils % (Manual) 78 % (50-75) H 11/11/16 15:35 Band Neutrophils % 10 % (0-2) H 11/11/16 15:35 Lymphocytes % (Manual) 8 % (20-40) L 11/11/16 15:35 Monocytes % (Manual) 4 % (0-10) 11/11/16 15:35 Platelet Estimate Normal (NORMAL) 11/11/16 15:35 Plt Clumps, EDTA Present 11/11/16 15:35 Hypochromasia (manual) Slight 11/11/16 15:35 Microcytosis (manual) Slight 11/11/16 15:35 APTT 29 SECONDS (21-34) 11/12/16 07:15 Sodium 141 mmol/L (132-148) 11/14/16 06:52 Potassium 3.8 mmol/L (3.6-5.2) 11/14/16 06:52 Chloride 105 mmol/L (98-107) 11/14/16 06:52 Carbon Dioxide 26 mmol/L (22-30) 11/14/16 06:52 Anion Gap 14 (10-20) 11/14/16 06:52 BUN 11 mg/dL (7-17) 11/14/16 06:52 Creatinine 0.7 MG/DL (0.7-1.2) 11/14/16 06:52 Est GFR ( Amer) > 60 11/14/16 06:52 Est GFR (Non-Af Amer) > 60 11/14/16 06:52 Random Glucose 120 mg/dL (65-105) H 11/14/16 06:52 Calcium 7.9 mg/dl (8.6-10.4) L 11/14/16 06:52 Phosphorus 3.4 mg/dL (2.5-4.5) 11/14/16 06:52 Magnesium 2.0 mg/dL (1.6-2.3) 11/14/16 06:52 Total Bilirubin 0.2 mg/dL (0.2-1.3) 11/14/16 06:52 AST 11 U/L (14-36) L 11/14/16 06:52 ALT 11 U/L (9-52) 11/14/16 06:52 Alkaline Phosphatase 61 U/L (38-126) 11/14/16 06:52 Total Protein 6.7 g/dL (6.3-8.3) 11/14/16 06:52 Albumin 3.2 g/dL (3.5-5.0) L 11/14/16 06:52 Globulin 3.4 gm/dL (2.2-3.9) 11/14/16 06:52 Albumin/Globulin Ratio 0.9 (1.0-2.1) L 11/14/16 06:52 Influenza Typ A,B (EIA) Negative for flu a/b (NEGATIVE) 11/11/16 13:28 Ur L.pneumophila Ag Negative (NEGATIVE) 11/11/16 17:57 Mycoplasma pneumon IgG 2.33 (<=0.90) H 11/11/16 19:23 Mycoplasma pneumon IgM 43 U/mL (<770) 11/11/16 19:23 Attending/Attestation - Attestation I have personally seen and examined this patient.: Yes I have fully participated in the care of the patient.: Yes I have reviewed all pertinent clinical information, including history, physical exam and plan: Yes Notes (Text): Patient seen, examined, and case discussed with day-time resident. Patient reports she is feeling better. Patient reports breathing is better and cough is improved. Patient's white count has improved since admission. Patient reports diarrhea has resolved. Blood cultures negative for 48 hours. New prescriptions: 1) Alveox 400mg PO daily for 3 days (3/0) 2) Ventolin HFA 1 puff Q 6hours PRN shortness of breathe (1/0 refill) 3) Fluticasone proprionate 1 puff Q 12hour (1 inhaler/0 refill) 4) Mucinex OTC 5) Phenergan w codeine 5ml PO Q 4 hour PRN cough (120ml/0) Discussed discharge order and discharge instructions with the day-time resident and with the patient at bedside. Patient verbalizes understanding and agrees with the plan. Patient advised to [facility] in the [facility] ([phone]) within one week of discharge to establish care. This is a summary of patient's hospitalization. Please see refer to EMR for further details. Assessment/Plan 1) Sepsis * Criteria: Leukocytosis 26.3, Tachycardia of 101, and source is pneumonia * Chest xray (11/11/16): retrocardiac atelectasis or pneumonia * Chest xray (11/12/16): question of developing left mid lung pneumonia. Follow- up PA and lateral radiographs are recommended for resolution * Completed 4 days of IV Avelox 400mg Iv q daily--. To finish additional 3 doses as directed * Florastor 250mg PO bid; take with yogurt * Legionella urine: negative, mycoplasma IgM, strep pneumo urine * Mucinex 600mg BID-->OTC on discharge * Promethazine/codeine 5ml PO Q4H cough syrup PRN * Tylenol 650mg PO Q 6hour PRN T>100.3F * Blood culture (11/11/16): no growth for 48 hours X2 * Urine culture: contaminated * Duonebs Q 4hours scheduled 2) Pneumonia * Completed 4 days of IV Avelox 400mg Iv q daily--. To finish additional 3 doses as directed upon discharge * Phenergan w codeine 5ml PO Q 4 hour PRN cough (120ml/0) upon discharge * Florastor 250mg PO bid * Legionella urine: negative, mycoplasma IgM, strep pneumo urine * Chest xray (11/11/16): retrocardiac atelectasis or pneumonia * Chest xray (11/12/16): question of developing left mid lung pneumonia. Follow- up PA and lateral radiographs are recommended for resolution * Mucinex 600mg BID 3) Asthma controlled * Patient is not in acute exacerbation * mild-moderate type * Start Advair 250/50 diskus 1 puff Q12H-->switched to Fluticasone 1 puff Q 12hours due to affordablity/lack of insurance for Advair * Duoneb Q 4hour scheduled 4) Diarrhea * Stool ova and parasite, C. dif toxin negative * resolved 5) Prophylaxis * Protonix 40mg IV daily for GI ppx * Heparin 5000 units subq 8hours * Florastor 250mg PO bid
[2016-11-14] MEDS: guaiFENesin 600 mg ER Tab PO SCH (10:31)
[2016-11-14] MEDS: Fluticasone-Salmeterol 250-50mcg Diskus INH SCH (11:03)
== END 2016-11-14 13:54 | disposition home or self-care (01) | DRG 584 ==
LOC: C.ER 12:11 → C.9E 16:37 → C.3T 17:16
PROVIDERS: ADMIT Hospitalist; ATTEND Hospitalist
DX: A41.9 Sepsis, unspecified organism (principal); J18.9 Pneumonia, unspecified organism; I95.9 Hypotension, unspecified; J45.901 Unspecified asthma with (acute) exacerbation; R19.7 Diarrhea, unspecified; Z79.51 Long term (current) use of inhaled steroids; Z87.11 Personal history of peptic ulcer disease; Z98.51 Tubal ligation status